=== PATIENT | male | born 1985 | race Caucasian/White ===

== ENCOUNTER 2017-05-08 17:59 | Emergency (ER) | payer SELFPAY ==
[~2017-05-08] VITALS: Ht 180.3 cm; Wt 60.0 kg
[2017-05-08] MEDS ORDERED: ULTRAM50 M1 PO (19:36)
[2017-05-08 19:41] VITALS: BP 140/78
== END 2017-05-08 19:40 | disposition home or self-care (01) | DRG 951 ==
LOC: ED 17:59
PROC: 0HQKXZZ Repair Right Lower Leg Skin, External Approach (ICD-10-PCS; principal; 2017-05-08)
DX: F17.210 Nicotine dependence, cigarettes, uncomplicated (principal); S81.811A Laceration without foreign body, right lower leg, initial encounter; W17.89XA Other fall from one level to another, initial encounter; Y93.89 Activity, other specified